=== PATIENT | female | born 1975 | race Native Hawaiian/Other Pacific Islander ===

== ENCOUNTER 2017-01-22 08:48 | Outpatient (CLI) | payer OTHER ==
--- NOTE | 2017-01-22 16:05 | Magnetic Resonance Report ---
MRI BRAIN WITHOUT AND WITH CONTRAST: 01/22/17 00:00:00 CLINICAL: Malignant neoplasm right temporal lobe. COMPARISON: 07/25/16 TECHNIQUE: Axial diffusion, T1, FLAIR, gradient echo T2*, and coronal and axial T2 and sagittal T1 plus coronal and axial postcontrast T1 sequences on a 1.5 Flakita magnet. 15.0 cc of Multihance was injected intravenously for the contrast portion of the exam. Consent was obtained prior to the administration of contrast. FINDINGS: Stable right temporal lobe postsurgical encephalomalacia and gliosis. Stable mild ventriculomegaly. No mass or enhancing lesion. No restricted diffusion No hemorrhage, edema or extra-axial collection. Normal pituitary and optic chiasm. The brainstem and cerebellum are normal. Intact vascular flow voids. The orbits, sinuses and soft tissues are normal. The calvarium and skull base are intact except for right craniotomy changes. IMPRESSION: No evidence of tumor. Stable right temporal lobe postsurgical encephalomalacia and mild ventriculomegaly.
== END 2017-01-22 08:49 | disposition home or self-care (01) ==
LOC: SPVIMAG 08:48
PROVIDERS: ATTEND Internal Medicine Hematology
DX: C71.2 Malignant neoplasm of temporal lobe (principal); G93.89 Other specified disorders of brain
CPT/HCPCS: 70553; A9577

== ENCOUNTER 2017-03-20 08:20 | Outpatient (CLI) | payer OTHER ==
--- NOTE | 2017-03-20 10:56 | Cat Scan Report ---
CT HEAD WITHOUT AND WITH CONTRAST: 03/20/17 08:20:00 CLINICAL: Headache. History of recent trauma and history of a right temporal lobe glioblastoma multiforme. TECHNIQUE: 2.5-mm noncontrast scans followed by postcontrast scans after the uneventful intravenous injection of 100 cc Omnipaque 300. Consent was obtained prior to administration of contrast. COMPARISON:01/27/13 CT Head And 01/22/17 MRI Brain. FINDINGS: Stable right temporal lobe encephalomalacia. No mass or enhancing lesion. No mass effect. No suspicious hypodensity. No hemorrhage or extra-axial collection. The ventricles and sulci are stable in size. Normal vascular structures. The sinuses are clear. Normal orbits and soft tissues. Postsurgical changes in the right cranium but otherwise intact calvarium. The skull base is intact. No fracture. IMPRESSION: Negative study with no acute change and no evidence of recurrent tumor.
== END 2017-03-20 08:21 | disposition home or self-care (01) ==
LOC: SPVIMAG 08:20
PROVIDERS: ATTEND Internal Medicine Hematology
DX: G93.89 Other specified disorders of brain (principal); S09.90XD Unspecified injury of head, subsequent encounter; X58.XXXD Exposure to other specified factors, subsequent encounter
CPT/HCPCS: 70470; Q9967

== ENCOUNTER 2017-06-19 10:21 | Outpatient (CLI) | payer OTHER ==
--- NOTE | 2017-06-19 13:02 | Mammography Report ---
BILATERAL DIGITAL SCREENING MAMMOGRAM with CAD : 06/19/17 10:21:00 CLINICAL: Routine screening. COMPARISON:04/10/16 FINDINGS: The breasts are heterogeneously dense, which may obscure small masses. No mass, architectural distortion or suspicious calcifications. IMPRESSION: No mammographic evidence of malignancy. BI-RADS CATEGORY: 2 -- Benign RECOMMENDATION: Routine mammographic screening in one year. COMMENT: Patient follow-up letters are generated by our [employer] application.
== END 2017-06-19 10:22 | disposition home or self-care (01) ==
LOC: SPVWC 10:21
PROVIDERS: ATTEND Obstetrics & Gynecology
DX: Z12.31 Encounter for screening mammogram for malignant neoplasm of breast (principal)
CPT/HCPCS: 77067; G0202

== ENCOUNTER 2017-08-26 13:53 | Outpatient (CLI) | payer OTHER ==
--- NOTE | 2017-08-27 08:13 | Magnetic Resonance Report ---
MRI BRAIN WITHOUT AND WITH CONTRAST: 08/26/17 14:00:00 CLINICAL: Status post right craniotomy for temporal lobe glioblastoma. COMPARISON: Most recently, the 01/22/17 and 07/25/16 TECHNIQUE: Axial diffusion, T1, FLAIR, gradient echo T2*, and coronal and axial T2 and sagittal T1 plus coronal and axial postcontrast T1 sequences on a 1.5 Flakita magnet. 12.0 cc of Multihance was injected intravenously for the contrast portion of the exam. Consent was obtained prior to the administration of contrast. FINDINGS: Stable right temporal lobe postsurgical encephalomalacia and gliosis. No mass or enhancing lesion. No hemorrhage, edema or extra-axial collection. Stable mild ventriculomegaly with ex-vacuo dilatation of the right lateral ventricle. Normal pituitary and optic chiasm. The brainstem and cerebellum are normal. Intact vascular flow voids. The orbits, sinuses and soft tissues are normal. Normal calvarium and skull base. IMPRESSION: Negative study with no evidence of tumor recurrence.
== END 2017-08-26 13:54 | disposition home or self-care (01) ==
LOC: MRI 13:53
PROVIDERS: ATTEND Internal Medicine Hematology
DX: C71.2 Malignant neoplasm of temporal lobe (principal); G93.89 Other specified disorders of brain
CPT/HCPCS: 70553; A9577

== ENCOUNTER 2018-01-01 13:24 | Outpatient (CLI) | payer OTHER ==
--- NOTE | 2018-01-01 15:57 | Magnetic Resonance Report ---
MRI BRAIN WITHOUT CONTRAST: 01/01/18 13:24:00 CLINICAL: Status post right craniotomy for temporal lobe glioblastoma. COMPARISON: 08/26/17 TECHNIQUE: Axial diffusion, T1, T2, FLAIR, gradient echo T2*, and sagittal T1 sequences on a 1.5 Flakita magnet without contrast. The patient refused IV contrast. FINDINGS: Stable right temporal lobe postsurgical encephalomalacia and gliosis. No restricted diffusion. No mass or mass effect. No hemorrhage, edema or extra-axial collection. Normal pituitary and optic chiasm. The brainstem and cerebellum are normal. Intact vascular flow voids. The sinuses are clear. The orbits, and soft tissues are normal. Normal calvarium and skull base. IMPRESSION: Negative noncontrast MRI brain. No change since the prior exam.
== END 2018-01-01 13:25 | disposition home or self-care (01) ==
LOC: SPVIMAG 13:24
PROVIDERS: ATTEND Internal Medicine Hematology
DX: Z08 Encounter for follow-up examination after completed treatment for malignant neoplasm (principal); G93.89 Other specified disorders of brain; R51 Headache; Z98.890 Other specified postprocedural states
CPT/HCPCS: 70551

== ENCOUNTER 2019-10-28 10:21 | Outpatient (CLI) | payer OTHER ==
--- NOTE | 2019-10-28 12:07 | Magnetic Resonance Report ---
MRI BRAIN WITHOUT AND WITH CONTRAST INDICATION / CLINICAL INFORMATION: MALIGNANT NEOPLASM OF TEMPORAL LOBE. TECHNIQUE: Multiplanar, multisequence MR images of the brain were obtained. The patient received 13 mL of IV Mul tiHance. COMPARISON: Multiple prior brain MRIs, most recently on 07/15/2018 and 01/01/2018 FINDINGS: BRAIN / INTRACRANIAL CONTENTS: There are stable postsurgical changes from previous tumor resection in the right temporal lobe with stable encephalomalacia and ex vacuo dilation of the right lateral vent ricle. There is no recurrent solid enhancing mass to suggest tumor recurrence. Remainder of the brain appears normal for age. CRANIOCERVICAL JUNCTION: No significant abnormality. VASCULAR FLOW-VOIDS: No significant abnormality. ORBITS: No significant abnormality of visualized orbits. SINUSES / MASTOIDS: No significant abnormality of visualized sinuses and mastoid air cells. ADDITIONAL FINDINGS: None. IMPRESSION: 1. Stable surveillance exam without evidence of macroscopic tumor recurrence. Signer Name: Rufus Mccurdy MD Signed: 10/28/2019 12:03 PM Workstation Name: [id number]
== END 2019-10-28 10:22 | disposition home or self-care (01) ==
LOC: SPVIMAG 10:21
PROVIDERS: ATTEND Internal Medicine Hematology
DX: C71.2 Malignant neoplasm of temporal lobe (principal)
CPT/HCPCS: 70553; A9577

== ENCOUNTER 2020-11-01 13:02 | Outpatient (CLI) | payer OTHER ==
--- NOTE | 2020-11-01 17:13 | Magnetic Resonance Report ---
NONENHANCED AND CONTRAST-ENHANCED MR SCAN OF THE BRAIN: INDICATION / CLINICAL INFORMATION: ASTROCYTOMA. TECHNIQUE: Multiplanar, multisequence MR images of the brain obtained. COMPARISON: MR scan of the brain from 10/28/2019 FINDINGS: BRAIN / INTRACRANIAL CONTENTS: Encephalomalacia in the right temporal lobe; unchanged since the last MRI scan; no change in the signal intensity since the last MRI scan; no focal area of enhancement; MR findings remain unchanged; compensatory enlargement of right temporal horn; no MR findings to sugges t tumor recurrence Left cerebral hemisphere, brainstem and cerebellar hemispheres are normal. CRANIOCERVICAL JUNCTION: No significant abnormality. VASCULAR FLOW-VOIDS: No significant abnormality. ORBITS: No significant abnormality of visualized orbits. SINUSES / MASTOIDS: No significant abnormality of visualized sinuses and mastoid air cells. ADDITIONAL FINDINGS: None. IMPRESSION: 1. MR findings remain unchanged since 10/28/2019; no new enhancement or focal area of FLAIR signal abn ormality; no MR findings to suggest tumor recurrence Signer Name: Tia Parra MD Signed: 11/01/2020 5:09 PM Workstation Name: [id number]
== END 2020-11-01 13:03 | disposition home or self-care (01) ==
LOC: SPVIMAG 13:02
PROVIDERS: ATTEND Internal Medicine Hematology
DX: C71.2 Malignant neoplasm of temporal lobe (principal)
CPT/HCPCS: 70553; A9575

== ENCOUNTER 2021-10-26 10:54 | Outpatient (CLI) | payer OTHER ==
--- NOTE | 2021-10-26 15:51 | Magnetic Resonance Report ---
NONENHANCED MR SCAN OF THE BRAIN: INDICATION / CLINICAL INFORMATION: C71.2. Post op brain tumor; follow-up TECHNIQUE: Multiplanar, multisequence MR images of the brain obtained. COMPARISON: MR scan of the brain from 11/01/2020 and 10/28/2019 FINDINGS: BRAIN / INTRACRANIAL CONTENTS: As seen in the previous imaging studies, right frontotemporal cranioto my changes; surgical defect in the right temporal lobe sparing the superior part of the right tempora l gyrus; compensatory enlargement of right temporal horn; compared to the last MRI scan, no change in the diffusion, FLAIR and post gadolinium series in the right temporal lobe. Previously seen increase d signal intensity involving the cortex and the white matter of the right temporal lobe, probably spo ngiosis, unchanged. No evidence of tumor recurrence. Brainstem and cerebellar hemispheres are normal. Left cerebral hemisphere is normal. CRANIOCERVICAL JUNCTION: No significant abnormality. VASCULAR FLOW-VOIDS: No significant abnormality. ORBITS: No significant abnormality of visualized orbits. SINUSES / MASTOIDS: No significant abnormality of visualized sinuses and mastoid air cells. ADDITIONAL FINDINGS: None. IMPRESSION: Findings in the right temporal lobe unchanged No MR findings to suggest tumor recurrence Signer Name: Tia Parra MD Signed: 10/26/2021 3:47 PM Workstation Name: [id number]
== END 2021-10-26 10:55 | disposition home or self-care (01) ==
LOC: MRI 10:54
PROVIDERS: ATTEND Internal Medicine Hematology
DX: C71.2 Malignant neoplasm of temporal lobe (principal)
CPT/HCPCS: 70553; A9575